=== PATIENT | female | born 1990 | race Caucasian/White ===

== ENCOUNTER 2017-06-10 11:45 | Emergency (ER) | payer MEDICAID, SELFPAY | END 2017-06-10 14:17 | disposition home or self-care (01) | PROVIDERS: Emergency Provider Nurse Practitioner Family; Family Provider Family Medicine; Visit Provider Nurse Practitioner Family | DX: J09.X2 Influenza due to identified novel influenza A virus with other respiratory manifestations (principal) | CPT/HCPCS: 87804; 87880; 99201 ==

== ENCOUNTER → 2019-01-20 09:18 | Outpatient (CLI) | payer OTHER, SELFPAY ==
[2019-01-20 11:13] LABS: Free Thyroxine Index 2.6 ug/dL (5.93-13.13); T4 (Thyroxine) 8.3 ug/dl (4.7-13.3); Thyroid Stimulating Hormone 5.66 uIU/ml (0.358-3.740); Triiodothryronine (T3) Uptake 31 % (31-39)
[2019-01-21 18:03] LABS: Triiodothyronine (T3) Free 3.3 pg/mL (2.0-4.4)
== END ==
PROVIDERS: Visit Provider Nurse Practitioner Obstetrics & Gynecology
DX: R53.82 Chronic fatigue, unspecified (principal)
CPT/HCPCS: 36415; 84436; 84443; 84479; 84481

== ENCOUNTER → 2019-02-23 13:21 | Outpatient (CLI) | payer OTHER, SELFPAY ==
--- NOTE | 2019-02-23 13:28 | US_ITS ---
PROCEDURE: US OB TRANSVAGINAL CLINICAL INDICATION: US T/V- ob dates COMPARISON: No exams were available for comparison FINDINGS: An intrauterine gestational sac is present with a pole with a crown-rump length of 2.32 cm correlating to gestational age of 9 weeks 1 day. heart tones are present with an FHR of 170 bpm. Yolk sac is noted. The amnion and chorion Have not yet fused. Adnexa: 2 cm right corpus luteum cyst IMPRESSION: Live intrauterine gestation at 9 weeks 1 day with estimated due date of 09/27/2019 Estimated due date by Ultrasound is 09/27/2019 Dictated by: Alex Aburto MD 02/23/2019 20:21 Electronically signed by Alex Aburto MD in [place] 02/23/2019 20:21
[2019-02-23 14:33] LABS: Basophils % 0.4 % (0.1-2.0); Eosinophils # 0.2 K/mm3 (0.0-0.4); Eosinophils % 1.8 % (0.1-12.0); Hematocrit 36.3 % (37.0-47.0); Hemoglobin 11.8 g/dL (12.2-16.2); Lymphocytes # 2.2 K/mm3 (0.7-4.5); Mean Corpuscular HGB Conc 32.6 g/dL (31.8-35.4); Mean Corpuscular Hemoglobin 26.6 pg (27.0-31.2); Mean Corpuscular Volume 81.7 fl (81-99); Mean Platelet Volume 7.2 fl (7.4-10.4); Monocytes # 0.5 K/mm3 (0.1-1.0); Monocytes % 4.3 % (1.7-9.3); Neutrophils # 8.2 K/mm3 (1.8-7.8); Neutrophils % 73.5 % (37.0-80.0); Platelet Count 412 K/mm3 (142-424); Red Blood Count 4.45 M/mm3 (4.20-5.40); Red Cell Distribution Width 14.8 % (11.5-17.5); White Blood Count 11.1 K/mm3 (4.8-10.8)
[2019-03-14 09:33] LABS: Hepatitis C Antibody <0.1
[2019-03-14 09:35] LABS: HIV Screen 4th Generation wRfx Non Reactive
[2019-03-14 09:42] LABS: Rapid Plasma Reagin Ab Titer Non Reactive
== END ==
PROVIDERS: PCP Family Medicine; Visit Provider Nurse Practitioner Obstetrics & Gynecology
DX: O26.841 Uterine size-date discrepancy, first trimester (principal)
CPT/HCPCS: 36415; 76817; 85025; 86592; 86703; 86762; 86850; 87340; 87380; G0432

== ENCOUNTER → 2019-02-23 13:46 | Outpatient (CLI) | payer OTHER, SELFPAY | PROVIDERS: Visit Provider Nurse Practitioner Obstetrics & Gynecology | DX: Z34.90 Encounter for supervision of normal pregnancy, unspecified, unspecified trimester (principal) | CPT/HCPCS: 36415; 85025; 86592; 86703; 86762; 86850; 87340; 87380; G0432 ==

== ENCOUNTER → 2019-06-30 08:16 | Outpatient (CLI) | payer OTHER, SELFPAY ==
[2019-06-30 08:50] LABS: Glucose,Fasting 95 mg/dL (60-105)
[2019-06-30 10:21] LABS: Glucose 1 Hour 160 mg/dL (74-106)
== END ==
PROVIDERS: Visit Provider Nurse Practitioner Obstetrics & Gynecology
DX: Z34.90 Encounter for supervision of normal pregnancy, unspecified, unspecified trimester (principal)
CPT/HCPCS: 36415; 82951

== ENCOUNTER → 2019-07-01 08:24 | Outpatient (CLI) | payer OTHER, SELFPAY ==
[2019-07-01 09:58] LABS: Glucose,Fasting 90 mg/dL (60-105)
[2019-07-01 10:15] LABS: Glucose 1 Hour 179 mg/dL (74-106)
[2019-07-01 11:08] LABS: Glucose 2 Hour 116 mg/dL (74-106)
[2019-07-01 12:06] LABS: Glucose 3 Hour 96 mg/dL (74-106)
== END ==
PROVIDERS: Visit Provider Nurse Practitioner Obstetrics & Gynecology
DX: O99.810 Abnormal glucose complicating pregnancy (principal)
CPT/HCPCS: 36415; 82951

== ENCOUNTER → 2019-08-24 15:41 | Outpatient (CLI) | payer OTHER, SELFPAY | PROVIDERS: Visit Provider Nurse Practitioner Obstetrics & Gynecology | DX: Z34.90 Encounter for supervision of normal pregnancy, unspecified, unspecified trimester (principal) | CPT/HCPCS: 86403 ==

== ENCOUNTER 2019-09-19 04:52 | Inpatient (IN) | payer OTHER, SELFPAY ==
[2019-09-19 04:56] VITALS: BMI 46.1
[2019-09-19 05:45] VITALS: BP 138/83; PULSE 88; RESP 18; TEMP 36.6; O2SAT 97; BMI 47.5
[2019-09-19 05:53] LABS: Basophils % 0.3 % (0.1-2.0); Eosinophils # 0.2 K/mm3 (0.0-0.4); Eosinophils % 1.4 % (0.1-12.0); Hematocrit 33.3 % (37.0-47.0); Hemoglobin 11.1 g/dL (12.2-16.2); Lymphocytes # 2.9 K/mm3 (0.7-4.5); Lymphocytes % 25.8 % (10-50); Mean Corpuscular HGB Conc 33.5 g/dL (31.8-35.4); Mean Corpuscular Hemoglobin 27.1 pg (27.0-31.2); Mean Platelet Volume 8.6 fl (7.4-10.4); Monocytes # 0.5 K/mm3 (0.1-1.0); Monocytes % 4.8 % (1.7-9.3); Neutrophils # 7.7 K/mm3 (1.8-7.8); Neutrophils % 67.8 % (37.0-80.0); Platelet Count 322 K/mm3 (142-424); Red Blood Count 4.11 M/mm3 (4.20-5.40); Red Cell Distribution Width 13.9 % (11.5-17.5); White Blood Count 11.3 K/mm3 (4.8-10.8)
[2019-09-19 05:54] LABS: Microscopic, Urine URINE MICROSCOPIC (MICROSCOPIC)
[2019-09-19 06:09] LABS: Appearance,Urine CLEAR (Clear); Bilirubin,Urine Negative (Negative); Blood, Urine TRACE-I (Negative); Color,Urine YELLOW (Yellow); Glucose,Urine (UA) Negative (Negative); Ketones,Urine Negative (Negative); Leukocyte Esterase,Urine 2+ (Negative); Nitrate,Urine Negative (Negative); PH,Urine 6.5 (5.0-8.5); Protein,Urine Negative (Negative); Specific Gravity, Urine 1.025 (1.005-1.030); Urobilinogen,Urine 0.2 EU/dl (0.2)
[2019-09-19 06:21] LABS: Bacteria,Urine 4+ /lpf; Mucus,Urine 1+ /lpf; WBC,Urine 20-50 #/hpf (0-3)
[2019-09-19 06:22] LABS: Amphetamine/Metha Screen,Urine Negative ng/ml (<1000); Barbiturates Screen,Urine Negative ng/ml (<200)
[2019-09-19 06:23] LABS: Benzodiazepines Screen,Urine Negative ng/ml (<200); Cannabinoid Screen,Urine Negative ng/ml (<50)
[2019-09-19 06:24] LABS: Cocaine Screen,Urine Negative ng/ml (<300)
[2019-09-19 06:25] LABS: Methadone Screen,Urine Negative ng/ml (<300); Opiate Screen,Urine Negative ng/ml (<300)
[2019-09-19 06:26] LABS: Phencyclidine Screen,Urine Negative ng/ml (<25)
[2019-09-19 07:12] VITALS: BP 132/74; PULSE 83; RESP 18; TEMP 36.8; O2SAT 100
--- NOTE | 2019-09-19 08:51 | HMH.LABNOT ---
Labor Note - Subjective: Date: 09/19/19 Time: 08:51 regular contraction - Objective: NST:: Reactive Contractions:: every 2-3 minutes Cervical Dilation:: 2-3 Station: -2 Membranes: artificially ruptured - Fetus: Monitoring?: Yes monitoring type:: Internal Comment:: I inserted an IUPC as well as a scalp clip. - Assessment: Labor progressing?: Yes Cephalopelvic disproportion?: No Patient Problems: All Active Problems (Acute) - Plan: Anesthesia for epidural?: No Continue to labor down?: Yes Plan for ?: No Continue to monitor?: Yes Start pushing?: No Continue pushing?: No
--- NOTE | 2019-09-19 11:02 | HMH.LABNOT ---
Labor Note - Subjective: Date: 09/19/19 Time: 11:02 regular contraction - Objective: NST:: Reactive Contractions:: every 2-3 minutes Cervical Dilation:: 5 Effacement:: 90% Station: -1 Membranes: artificially ruptured - Fetus: Monitoring?: Yes monitoring type:: Internal - Assessment: Labor progressing?: Yes Cephalopelvic disproportion?: No Patient Problems: All Active Problems (Acute) - Plan: Anesthesia for epidural?: No Continue to labor down?: Yes Plan for ?: No Continue to monitor?: Yes Start pushing?: No
[2019-09-19 12:04] VITALS: BP 142/74; PULSE 83; RESP 18; TEMP 36.4
--- NOTE | 2019-09-19 13:18 | HMH.DN ---
- Delivery Note Delivery Date:: 09/19/19 Delivery Time:: 13:04 Anesthesia Type: None Was labor medically induced?: Yes Induction method: per pitocin protocol Gestational age (weeks): 39 Infant delivered prior to 39 weeks?: No Gender: Female at 1 minute: 6 at 5 minutes: 9 Delivery Procedure:: She is a 29-year-old 3 para 2 at 39 weeks gestational age. She has had a previous history of rapid labor and as result of that we elected to bring her in at 39 weeks gestational age. She was started on IV oxytocin and had her membranes ruptured. She progressed to full dilation and rapidly delivered a liveborn female child at 1:04 PM. The rest the infant's body then delivered atraumatically. The baby was vigorous. The cord was clamped and cut and the baby was placed on the mother's abdomen for further care. I missed the delivery and the baby was delivered by the nurse. I arrived shortly after delivery and obtained cord blood as well as cord pH. She received IV oxytocin using gentle traction on the cord and countertraction the fundus I was able to easily deliver the placenta intact. He had a normal three-vessel cord. There were no perineal or vaginal lacerations. She has O Rh+ blood, she is rubella immune and was group B streptococcus negative. She plans to breast-feed. Her net programmer analyst is Dr. Mcknight. Estimated blood loss was approximately 400 cc. Placental Delivery Description: Spontaneous
[2019-09-19 13:24] LABS: Cord Blood PH 7.46 (7.35-7.45)
[2019-09-19 15:30] VITALS: BP 135/65; PULSE 88; RESP 18; TEMP 36.5
[2019-09-20 06:37] LABS: Hematocrit 31.8 % (37.0-47.0); Hemoglobin 10.5 g/dL (12.2-16.2)
[2019-09-20 08:00] VITALS: BP 141/65; PULSE 79; RESP 18; TEMP 36.7; O2SAT 98
--- NOTE | 2019-09-20 09:32 | HMH.ACPN2 ---
Internal Medicine - PN: Subj *Date: 09/20/19 *Time: 09:32 Interval history: She is doing very well this morning. She is 1 day post delivery. She feels well. Her lochia is normal. She is breast-feeding. Exam Vital signs and Labs for Last 24 Hours: Temp Pulse Resp BP Pulse Ox 98.1 F 79 18 141/65 H 98 09/20/19 08:00 09/20/19 08:00 09/20/19 08:00 09/20/19 08:00 09/20/19 08:00 Laboratory Results - last 24 hr 09/19/19 13:10: Cord ABG pH 7.46 H 09/20/19 05:55: Hgb 10.5 L, Hct 31.8 L I & O for Last 24 hours: Intake & Output 09/17/19 09/18/19 09/19/19 09/20/19 11:59 11:59 11:59 11:59 Weight 286 lb Microbiology Reports for the Last 24 Hours: Microbiology 09/19/19 05:00 Urine,Clean Catch Urine Culture - Final Multiple organisms, suggests contamination. - Constitutional no acute distress - *Routine HEENT Exam Head: Present: normocephalic Eye: Present: EOMI, PERRL ENT: Present: mucous membranes moist Assessment and Plan - Assessment and plan all Dx Assessment and Plan for all problems:: She continues to do well. We will plan to send her home tomorrow.
--- NOTE | 2019-09-20 14:29 | SW/DCPLANNER ---
RECEIVED REFERRAL FOR THIS PATIENT STATING PATIENT DELIVERED A LIVE BORN FEMALE YESTERDAY, SHE HAS BEEN MOST APPROPRIATE WITH INFANT AND HAS OTHER CHILDREN IN THE HOME..PATIENTS REFERRAL WAS TRIGGERED BY A HISTORY OF DEPRESSION AND ANXIETY AND A HISTORY OF CUTTING ALSO... I MADE CONTACT WITH THE NURSE CARING FOR THIS PATIENT TODAY SINCE IT STATED SHE HAS A HISTORY OF CUTTING AND I HAVE RECOMMENDED AN APPT WITH JONATHAN ZAMARRIPA HERE [facility]...SHE GETS WIC AND HANDS HER STAY IS GOING TO BE SHORT. PATIENT HAS ELECTED TO USE DR SEVILLA THE INFANTS INTERNATIONAL MARKETING MANAGER....
[2019-09-20 16:00] VITALS: BP 144/89; PULSE 71; RESP 18; TEMP 36.7; O2SAT 99
[2019-09-21 08:00] VITALS: BP 156/67; PULSE 88; RESP 17; TEMP 36.7; O2SAT 99
--- NOTE | 2019-09-21 10:23 | P.DS_ITS ---
General - General Admission date:: 09/19/19 Discharge date: 09/21/19 HPI HPI: She is a 29-year-old 3 para 2 who was 39 weeks gestational age. She is had a previous rapid delivery and as result of that we brought her in for induction of labor at term. Hospital Course Hospital Course: She was started on IV oxytocin had her membranes ruptured. She progressed to full dilation and delivered spontaneously a liveborn female child at 1:06 PM in the afternoon of September 19, 2019. The baby was a liveborn female child weighing 7 pounds 8 ounces and was 20-1/2 inches long. She had Apgars of 6 at 1 minute and 9 at 5 minutes. She has done well and has remained afebrile throughout her hospitalization. She is eating and drinking and ambulating. She is breast- feeding. She has O Rh+ blood, she is rubella immune and was group B streptococcus negative. She is discharged home to follow-up with me in 6 weeks time. She will continue with her vitamins and iron. Her blood pressure was slightly elevated this morning but she denies any symptoms. She will continue to monitor her blood pressure at home. She was given the warning signs of PIH. Her condition on discharge is stable and improved. Rhogam Administration: Not Indicated Objective Vital signs: Temp Pulse Resp BP Pulse Ox 98.1 F 88 17 156/67 H 99 09/21/19 08:00 09/21/19 08:00 09/21/19 08:00 09/21/19 08:00 09/21/19 08:00 no acute distress - *Routine HEENT Exam Head: Present: normocephalic Eye: Present: EOMI, PERRL ENT: Present: mucous membranes moist DS: Diagnosis - Discharge Diagnosis (1) Normal delivery at term Status: Acute Discharge Plan - Patient Discharge Instructions ACTIVITY: No heavy lifting DIET: continue same diet Additional Instructions: FOLLOW UP WITH DR FORTUNE ON Wednesday10/03/2019 AT 9:30AM CALL AND SCHEDULE APPOINTMENT WITH JONATHAN STEVENSON APRN TO RESUME VISITS. No heavy lifting, no strenuous activity, nothing in the vagina for 6 weeks. Patient Instructions: Depression, Hemorrhage, DI for Labor and Delivery, Vaginal , DI for Pre-eclampsia, [facility] Post Discharge Instructions, Preventing the Spread of Coronavirus Discharge Instructions - Follow up Plan Follow up with: Kwasi Fortune MD [Staff Physician] - Disposition: Home, Self-Jail Medications: Home Medications Medication Instructions Recorded Confirmed Type ferrous sulfate 325 mg (65 mg 325 mg PO DAILY 02/16/19 09/19/19 History iron) tablet prenat.vits,andra,ibk-fwyg-owfjy 1 tab PO DAILY 02/16/19 09/19/19 History Levothyroxine Sodium 25 mcg PO DAILY 09/19/19 09/19/19 History [Levothyroxine 25mcg (0.025mg) Tab] Prescriptions/Medication Reconciliation: Continued prenat.vits,andra,jex-rvge-fcxvn 1 tab PO DAILY ferrous sulfate 325 mg (65 mg iron) tablet 325 mg PO DAILY Levothyroxine Sodium [Levothyroxine 25mcg (0.025mg) Tab] 25 mcg PO DAILY - Problem Reconciliation Problems Reviewed?: Yes
== END 2019-09-21 11:20 | disposition home or self-care (01) | DRG 807 ==
PROVIDERS: Admitting Provider Nurse Practitioner Obstetrics & Gynecology; PCP Physician Assistant; Visit Provider Nurse Practitioner Obstetrics & Gynecology
DX: O80 Encounter for full-term uncomplicated delivery (principal); Z37.0 Single live birth; Z3A.39 39 weeks gestation of pregnancy
CPT/HCPCS: 59409; 36415; 59025; 80305; 81001; 82800; 85014; 85018; 85025; 86850; 87086; C1758

== ENCOUNTER → 2020-08-15 14:13 | Outpatient (CLI) | payer OTHER, SELFPAY | PROVIDERS: PCP Physician Assistant; Visit Provider Nurse Practitioner Family | DX: Z02.1 Encounter for pre-employment examination (principal) ==

== ENCOUNTER → 2021-03-20 14:38 | Outpatient (CLI) | payer OTHER, SELFPAY | PROVIDERS: PCP Physician Assistant; Visit Provider Nurse Practitioner | DX: Z20.822 Contact with and (suspected) exposure to COVID-19 (principal); U07.1 COVID-19 | CPT/HCPCS: C9803; U0003; U0005 ==

== ENCOUNTER → 2021-03-26 09:20 | Outpatient (CLI) | payer OTHER, SELFPAY | PROVIDERS: PCP Physician Assistant; Visit Provider Nurse Practitioner | DX: Z20.822 Contact with and (suspected) exposure to COVID-19 (principal); U07.1 COVID-19 | CPT/HCPCS: C9803; U0003; U0005 ==

== ENCOUNTER → 2021-03-28 15:08 | Outpatient (CLI) | payer OTHER, SELFPAY | PROVIDERS: PCP Physician Assistant; Visit Provider Nurse Practitioner | DX: Z20.822 Contact with and (suspected) exposure to COVID-19 (principal); U07.1 COVID-19 | CPT/HCPCS: C9803; U0003; U0005 ==

== ENCOUNTER 2021-03-31 16:10 | Emergency (ER) | payer OTHER, SELFPAY ==
[2021-03-31 16:10] VITALS: BP 163/78; PULSE 99; RESP 16; TEMP 36.9; O2SAT 98; BMI 47.4
[2021-03-31 17:04] LABS: UTC Strep Screen (Rapid) Negative (Negative)
--- NOTE | 2021-03-31 17:21 | HMH.EDUTC ---
[facility] [place] Clinical Impression: Pharyngitis Qualifiers: Pharyngitis/tonsillitis etiology: unspecified etiology Qualified Code(s): J02.9 - Acute pharyngitis, unspecified Disposition: Home, Self-Care Condition on Discharge: Good Instructions: Strep Throat, DI for Strep Throat Additional Instructions: Drink plenty of fluids. Take tylenol or ibuprofen for pain or fever. Take the medications as directed. Follow up with your regular doctor. GO TO THE ER FOR ANY WORSENING SYMPTOMS Throw your tooth brush away and get a new one. Prescriptions: Brompheniramine/Pseudoephed/Dm [Bromfed Dm Cough Syrup] 5 ml PO Q6HP PRN #240 ml PRN Reason: Cough Transmission Status: Received by [id number] Amoxicillin [Amoxicillin 500mg Tab] 500 mg PO TID 10 Days #30 tab Transmission Status: Received by [id number] predniSONE [Deltasone 10mg tablet] 10 mg PO BID 3 Days #6 tab Transmission Status: Received by [id number] Referrals: Dena Dunaway PA [Primary Care Provider] - Forms: Work/School Release Time of Disposition: 17:26 Medical Decision Making - Medical Records Medical records reviewed: No: I reviewed the patient's medical records. - Edgar Inquiry Pt receiving controlled substance: No Vital Signs: 03/31/21 16:10 03/31/21 17:43 Temperature 98.4 F 98.4 F Temperature Source Oral Oral Pulse Rate 87 Pulse Rate [Right] 99 H Respiratory Rate 16 16 Blood Pressure 160/72 H Blood Pressure [Right Arm] 163/78 H Blood Pressure Mean [Right Arm] 106 Blood Pressure Source Automatic Cuff Blood Pressure Source [Right Arm] Automatic Cuff Blood Pressure Position Sitting Blood Pressure Position [Right Arm] Sitting 02 Sat by Pulse Oximetry 98 Oxygen Delivery Method Room Air Room Air - Lab Data Lab results reviewed: Yes: I reviewed the patient's lab results. Lab Results 03/31/21 17:00: Strep Scn Rapid Clinic Negative Orders (Tests/Meds): ORDERS Category Date Time Status Strep Screen Confirmation Routine Micro 03/31/21 17:00 [place] [facility] [place] - General Stated complaint: Strep Throat Time Seen by Provider: 03/31/21 17:22 Mode of Arrival: Ambulatory Source of Information: Patient Limitations: No Limitations Description of Symptoms (Recalled from Triage Doc. by RN): pt c/o sore throat that started yesterday HEENT Symptoms (Recalled from RN notes): Yes (sore throat) Resp Symptoms (Recalled from RN notes): No Skin Symptoms (Recalled from RN notes): No MS Symptoms (Recalled from RN notes): No Functional Status (Recalled from RN notes): na - History of Present Illness Provider Complaint: She states that she has had a sore throat and felt bad for the past 2 days. She had covid around 2 weeks ago, but she never really got very sick from that and she has been better from it completely for the past 10 days at least. Her work wants her to be tested for covid-19 too while she is here since she is sick. - Related Data Home Medications Medication Instructions Recorded Confirmed Levothyroxine Sodium 25 mcg PO DAILY 09/19/19 11/02/19 [Levothyroxine 25mcg (0.025mg) Tab] sertraline 100 mg tablet 100 mg PO tab 11/02/19 11/02/19 Previous Rx's Medication Instructions Recorded norethindrone (contraceptive) 0.35 0.35 mg PO DAILY #84 tab 11/02/19 mg tablet Amoxicillin [Amoxicillin 500mg Tab] 500 mg PO TID 10 Days #30 tab 03/31/21 Brompheniramine/Pseudoephed/Dm 5 ml PO Q6HP PRN #240 ml 03/31/21 [Bromfed Dm Cough Syrup] predniSONE [Deltasone 10mg tablet] 10 mg PO BID 3 Days #6 tab 03/31/21 Allergies Allergy/AdvReac Type Severity Reaction Status Date / Time No Known Allergies Allergy Verified 11/02/19 10:46 - Worker's Comp Is this a Worker's Comp case?: No [place] History - Hepatitis A Screen Drug use history?: No High risk sexual behaviors?: No History of sexually transmitted infection?: No Currently employed?: No Childcare worker?: No
[2021-03-31 17:43] VITALS: BP 160/72; PULSE 87; RESP 16; TEMP 36.9; O2SAT 98
== END 2021-03-31 17:44 | disposition home or self-care (01) ==
PROVIDERS: Emergency Provider Nurse Practitioner Family; PCP Physician Assistant
DX: J02.9 Acute pharyngitis, unspecified (principal); Z20.822 Contact with and (suspected) exposure to COVID-19
CPT/HCPCS: 87880; 99202; G0463

== ENCOUNTER → 2021-04-02 11:42 | Outpatient (CLI) | payer OTHER, SELFPAY | PROVIDERS: PCP Physician Assistant; Visit Provider Nurse Practitioner | DX: Z20.822 Contact with and (suspected) exposure to COVID-19 (principal) | CPT/HCPCS: C9803; U0003; U0005 ==

== ENCOUNTER → 2021-08-21 07:03 | Outpatient (CLI) | payer OTHER, SELFPAY ==
[2021-08-21 07:23] LABS: Basophils # 0.1 K/mm3 (0-0.2); Basophils % 1.3 % (0.1-2.0); Eosinophils # 0.4 K/mm3 (0.0-0.4); Eosinophils % 4.4 % (0.1-12.0); Hematocrit 42.3 % (37.0-47.0); Hemoglobin 13.2 g/dL (12.2-16.2); Lymphocytes # 2.6 K/mm3 (0.7-4.5); Lymphocytes % 30.2 % (10-50); Mean Corpuscular HGB Conc 31.2 g/dL (31.8-35.4); Mean Corpuscular Hemoglobin 26.9 pg (27.0-31.2); Mean Corpuscular Volume 85.9 fl (81-99); Mean Platelet Volume 8.2 fl (7.4-10.4); Monocytes # 0.4 K/mm3 (0.1-1.0); Monocytes % 4.4 % (1.7-9.3); Neutrophils # 5.1 K/mm3 (1.8-7.8); Neutrophils % 59.8 % (37.0-80.0); Platelet Count 391 K/mm3 (142-424); Red Blood Count 4.92 M/mm3 (4.20-5.40); Red Cell Distribution Width 14.1 % (11.5-17.5); White Blood Count 8.6 K/mm3 (4.8-10.8)
[2021-08-21 07:56] LABS: Alanine Aminotransferase 27 U/L (12-78); Albumin Level 4.1 g/dl (3.5-5.0); Albumin/Globulin Ratio 1.4 (1.1-1.8); Alkaline Phosphatase 77 U/L (38-126); Anion Gap 11.1 mEq/L (5-15); Aspartate Amino Transferase 21 U/L (14-36); Bilirubin,Total 0.6 mg/dl (0.2-1.3); Blood Urea Nitrogen 10 mg/dl (7-17); Calcium 8.8 mg/dl (8.4-10.2); Carbon Dioxide 30 mmol/L (22.0-30.0); Chloride 103 mmol/L (98-107); Chol/HDL Ratio 3.4 (1-3.5); Cholesterol 178 mg/dl (140-200); Estimated Glomerular Filt Rate 118 ml/min (>60); GFR (African American) 143 ML/MIN (>60); Glucose 110 mg/dl (74-100); HDL Cholesterol 53 mg/dl (40-60); Potassium 4.1 mmoL/L (3.5-5.1); Sodium 140 mmol/L (136-145); Total Protein,Serum 7.1 g/dl (6.3-8.2); Triglycerides 93 mg/dl (30-150); VLDL Cholesterol 19 mg/dL (0-40)
[2021-08-21 08:07] LABS: Direct LDL Cholesterol 90.82 mg/dL (100-129)
[2021-08-21 08:14] LABS: Free Thyroxine Index 2.6 ug/dL (5.93-13.13); T4 (Thyroxine) 7.5 ug/dl (5.53-11.0); Triiodothryronine (T3) Uptake 35 % (23.5-40.5)
== END ==
PROVIDERS: Visit Provider Nurse Practitioner Obstetrics & Gynecology
DX: Z01.419 Encounter for gynecological examination (general) (routine) without abnormal findings (principal); R53.82 Chronic fatigue, unspecified; R63.5 Abnormal weight gain
CPT/HCPCS: 36415; 80053; 80061; 84436; 84443; 84479; 85025

== ENCOUNTER 2022-03-24 16:49 | Emergency (ER) | payer OTHER, SELFPAY ==
[2022-03-24 17:15] VITALS: BP 121/76; PULSE 101; RESP 18; TEMP 36.8; O2SAT 98; BMI 50.0
[2022-03-24 17:34] LABS: UTC Strep Screen (Rapid) Negative (Negative)
[2022-03-24 18:09] VITALS: BP 121/76; PULSE 101; RESP 18; TEMP 36.8; O2SAT 98
--- NOTE | 2022-03-24 18:17 | EXP.UTC ---
Discharge Plan Disposition Patient Disposition: Home, Self-Care Condition: Good Prescriptions Prescriptions: New cyclobenzaprine 10 mg tablet 10 mg PO TID PRN (Reason: muscle spasm) Qty: 30 0RF Referrals Follow up/Referrals: Dena Dunaway PA [Primary Care Provider] - See instructions Clinical Impressions Clinical Impression: Acute strain of neck muscle Qualifiers: Encounter type: initial encounter Qualified Code(s): S16.1XXA - Strain of muscle, fascia and tendon at neck level, initial encounter Instructions Patient Instructions: DI for Muscle Strain Discharge ED Provider: Teresa Gordon [facility] General Stated complaint: AO 03/19 HURT BACK @HOME Mode of Arrival: Ambulatory Source of Information: Patient Limitations: No Limitations Time Seen by Provider: 03/24/22 18:17 Description of Symptoms (Recalled from Triage Doc. by RN): PATIENT C/O NECK SORENESS AND STIFFNESS X 4 DAYS HEENT Symptoms (Recalled from RN notes): No Resp Symptoms (Recalled from RN notes): No Skin Symptoms (Recalled from RN notes): No MS Symptoms (Recalled from RN notes): Yes Functional Status (Recalled from RN notes): WNL History of Present Illness Provider Complaint: Pt relates that 4 days ago she went to lift a child to its feet and felt a muscle strain in her neck. She states she has used icy hot, taken Tylenol/Ibuprofen, and done warm compresses with no relief. She states that she woke up this morning with pain while swallowing. Related Data Previous Rx's Medication Instructions Recorded cyclobenzaprine 10 mg tablet 10 mg PO TID PRN muscle spasm #30 03/24/22 tabs Allergies Allergy/AdvReac Type Severity Reaction Status Date / Time No Known Allergies Allergy Verified 08/20/21 15:56 Worker's Comp Is this a Worker's Comp case?: No PFSH [facility] Medical History (Updated 03/24/22 @ 18:27 by Teresa Gordon HANDKERCHIEF MAKER) Anxiety Depression Social History (Updated 03/24/22 @ 17:25 by Edna Ortiz RN) Smoking Status: Current every day smoker alcohol intake: current substance use type: denies use and marijuana current occupational status: unemployed Travel in the last 8 weeks: None number of children: 2 ROS Obtained: Yes All systems reviewed & no additional complaints except as documented Constitutional Constitutional: Reports system reviewed and no additional complaints, except as documented Eyes Eyes: Reports system reviewed and no additional complaints, except as documented ENT Ears, Nose, Mouth, and Throat: Reports as per HPI, Reports neck pain and Reports sore throat Cardiovascular Cardiovascular: Reports system reviewed and no additional complaints, except as documented Respiratory Respiratory: Reports system reviewed and no additional complaints, except as documented Gastrointestinal Gastrointestingal: Reports system reviewed and no additional complaints, except as documented Genitourinary Female Genitourinary: Reports system reviewed and no additional complaints, except as documented Musculoskeletal Musculoskeletal: Reports as per HPI, Reports muscle cramps, Reports myalgias and Reports neck pain Integumentary/Breasts Skin/Breast: Reports system reviewed and no additional complaints, except as documented Neurologic Neurologic: Reports system reviewed and no additional complaints, except as documented Endocrine Endocrine: Reports system reviewed and no additional complaints, except as documented Hematologic/Lymphatic Henatologic/Lymphatic: Reports system reviewed and no additional complaints, except as documented Allergic/Immunologic Allergic/Immunologic: Reports system reviewed and no additional complaints, except as documented Physical Exam General General appearance: alert and in no apparent distress Head Head exam: atraumatic and normocephalic Eye Eye exam: Present normal appearance ENT ENT exam: Present normal exam Expanded Neck Exam Neck exam focused ED: Present paraspinal tenderness a
== END 2022-03-24 18:40 | disposition home or self-care (01) ==
PROVIDERS: Emergency Provider Nurse Practitioner Family; PCP Physician Assistant
DX: S16.1XXA Strain of muscle, fascia and tendon at neck level, initial encounter (principal)
CPT/HCPCS: 87880; 96372; 99212; G0463

== ENCOUNTER → 2022-09-14 17:09 | Outpatient (CLI) | payer OTHER, SELFPAY | PROVIDERS: PCP Nurse Practitioner Family; Visit Provider Nurse Practitioner Family | DX: J02.9 Acute pharyngitis, unspecified (principal) | CPT/HCPCS: 87070 ==

== ENCOUNTER → 2022-10-31 09:26 | Outpatient (CLI) | payer OTHER, SELFPAY ==
--- NOTE | 2022-10-31 09:41 | XR_ITS ---
FINAL REPORT CLINICAL HISTORY: LT ANT KNEE PAIN FINDINGS: Three views of the left knee reveal no evidence of fracture or dislocation. The bony alignment is normal. There are mild degenerative changes. There is no evidence of joint effusion. No localized soft tissue abnormality is seen. IMPRESSION: No acute abnormality identified. Reviewed, Interpreted and Dictated by Jonnathan Ambrocio III, MD Transcribed by Asya Tovar Authenticated and [facility]
[2022-10-31 09:59] LABS: Basophils # 0.1 K/mm3 (0-0.2); Basophils % 0.6 % (0.1-2.0); Eosinophils # 0.4 K/mm3 (0.0-0.4); Eosinophils % 3.8 % (0.1-12.0); Hematocrit 41.1 % (37.0-47.0); Hemoglobin 13.1 g/dL (12.2-16.2); Lymphocytes # 2.5 K/mm3 (0.7-4.5); Lymphocytes % 26.9 % (10-50); Mean Corpuscular HGB Conc 31.9 g/dL (31.8-35.4); Mean Corpuscular Volume 84.5 fl (81-99); Mean Platelet Volume 7.8 fl (7.4-10.4); Monocytes # 0.4 K/mm3 (0.1-1.0); Monocytes % 4.7 % (1.7-9.3); Neutrophils # 5.9 K/mm3 (1.8-7.8); Platelet Count 366 K/mm3 (142-424); Red Blood Count 4.87 M/mm3 (4.20-5.40); Red Cell Distribution Width 14.4 % (11.5-17.5); White Blood Count 9.3 K/mm3 (4.8-10.8)
[2022-10-31 10:43] LABS: Hemoglobin A1C 5.7 % (4.0-6.0)
[2022-10-31 10:45] LABS: Alanine Aminotransferase 40 U/L (12-78); Albumin Level 3.9 g/dl (3.5-5.0); Albumin/Globulin Ratio 1.2 (1.1-1.8); Alkaline Phosphatase 83 U/L (38-126); Anion Gap 12.9 mEq/L (5-15); Aspartate Amino Transferase 34 U/L (14-36); Bilirubin,Total 0.6 mg/dl (0.2-1.3); Blood Urea Nitrogen 8 mg/dl (7-17); Calcium 8.6 mg/dl (8.4-10.2); Carbon Dioxide 31 mmol/L (22.0-30.0); Chloride 99 mmol/L (98-107); Chol/HDL Ratio 2.8 (1-3.5); Cholesterol 168 mg/dl (140-200); Estimated Glomerular Filt Rate 145 ml/min (>60); GFR (African American) 175 ML/MIN (>60); Globulin 3.2 g/dL (1.3-3.2); Glucose 98 mg/dl (74-100); HDL Cholesterol 61 mg/dl (40-60); Potassium 3.9 mmoL/L (3.5-5.1); Sodium 139 mmol/L (136-145); Total Protein,Serum 7.1 g/dl (6.3-8.2); Triglycerides 86 mg/dl (30-150); VLDL Cholesterol 17 mg/dL (0-40)
[2022-10-31 10:57] LABS: Direct LDL Cholesterol 101.93 mg/dL (100-129)
[2022-10-31 11:16] LABS: Thyroid Stimulating Hormone 2.89 uIU/mL (0.465-4.68)
== END ==
PROVIDERS: PCP Nurse Practitioner Family; Visit Provider Nurse Practitioner Family
DX: Z00.00 Encounter for general adult medical examination without abnormal findings (principal); R53.83 Other fatigue; R73.9 Hyperglycemia, unspecified; M25.562 Pain in left knee
CPT/HCPCS: 36415; 73562; 80053; 80061; 83036; 84443; 85025

== ENCOUNTER 2022-12-06 10:02 | Emergency (ER) | payer OTHER, SELFPAY ==
[2022-12-06 10:15] VITALS: BP 141/88; PULSE 106; RESP 19; TEMP 37.7; O2SAT 98; BMI 47.2
[2022-12-06 10:23] LABS: UTC Strep Screen (Rapid) Positive (Negative)
[2022-12-06 10:24] VITALS: BP 141/88; PULSE 106; RESP 19; TEMP 37.7; O2SAT 98
--- NOTE | 2022-12-06 10:24 | EXP.UTC ---
Discharge Plan Disposition Patient Disposition: Home, Self-Care Condition: Good Prescriptions Prescriptions: New amoxicillin 875 mg tablet 875 mg PO BID Qty: 20 0RF Referrals Follow up/Referrals: Rachel Miller APRN [Primary Care Provider] - See instructions Activity Restrictions/Add. Instructions Additional Instructions/Restrictions: *Monitor Temp, Over the counter Motrin or Tylenol as directed/as needed Tylenol every 4 hours and Motrin every 6 hours (as long as your family doctor has told you that you can take it) for fever or pain. and straight to ER if unable to lower temp less than 101.0 after medication given *Warm salt water gargles may help to soothe the throat *Throat Lozenges? *Warm fluids like tea with honey may help to soothe the throat? *Sleep elevated *Humidifier/Vaporizer *If you did not take Penicillin shot or was unable to, start taking antibiotic immediately and make sure that you take it for the FULL length of time although you should start to feel better in 24-48 hours *change toothbrush and toothpaste 24-48 hours after starting to take antibiotics so you do not reinfect yourself Monitor Temp. Tylenol and/or Ibuprofen as needed. ER if fever is no less than 101 despite alternating Tylenol and Ibuprofen * Encourage fluids, water, Gatorade, powerade, pedialyte if /toddler/or child *Cold fluids, popsicles and ice cream may feel good on his throat Follow up IMMEDIATELY for new or worsening symptoms or no Noticeable improvement over the next 48-72 hours. 911 for difficulty breathing or swallowing Clinical Impressions Clinical Impression: Strep throat Stand Alone Forms Stand Alone Forms: Work/School Release Instructions Patient Instructions: Middle Ear Infection, DI for Strep Throat, Amoxicillin Discharge ED Provider: Jolanta Feuntes [facility] [place] HPI General Stated complaint: headache,sore throat,fever Mode of Arrival: Ambulatory Source of Information: Patient Limitations: No Limitations Time Seen by Provider: 12/06/22 10:24 Description of Symptoms (Recalled from Triage Doc. by RN): PATIENT C/O SORE THROAT, HEADACHE, BODY ACHES, AND CHILLS SINCE WEDNESDAY HEENT Symptoms (Recalled from RN notes): Yes Resp Symptoms (Recalled from RN notes): No Skin Symptoms (Recalled from RN notes): No MS Symptoms (Recalled from RN notes): No Functional Status (Recalled from RN notes): WNL History of Present Illness Provider Complaint: Patient states that she started feeling bad several days ago and has continued to get worse States that she has been having fever, headache, chills, sorethroat and pain in her right ear States that this morning she woke up with fever and took Tylenol to help to break it and then came in to get checked Related Data Previous Rx's Medication Instructions Recorded amoxicillin 875 mg tablet 875 mg PO BID #20 tabs 12/06/22 Allergies Allergy/AdvReac Type Severity Reaction Status Date / Time No Known Allergies Allergy Verified 09/14/22 10:45 Worker's Comp Is this a Worker's Comp case?: No [facility] Disclaimer: The information contained in this section may have been updated after the patient was seen, as this information can be updated by other users. Medical History (Updated 12/06/22 @ 10:29 by Jolanta Fuentes APRN) 6 weeks follow-up Acute strain of neck muscle Anxiety Depression Pharyngitis Social History Smoking Status: Current every day smoker alcohol intake: current substance use type: denies use and marijuana current occupational status: unemployed Travel in the last 8 weeks: None number of children: 2 ROS Obtained: Yes All systems reviewed & no additional complaints except as documented and Yes Systems reviewed as appropriate & no additional complaints except as documented Constitutional Constitutional: Reports system reviewed and no additional complaints
== END 2022-12-06 10:38 | disposition home or self-care (01) ==
PROVIDERS: Emergency Provider Nurse Practitioner; PCP Nurse Practitioner Family
DX: J02.0 Streptococcal pharyngitis (principal); R50.9 Fever, unspecified; R51.9 Headache, unspecified; H66.91 Otitis media, unspecified, right ear
CPT/HCPCS: 87880; 99212; 99214; G0463

== ENCOUNTER → 2023-01-15 11:54 | Outpatient (CLI) | payer OTHER, SELFPAY ==
--- NOTE | 2023-01-15 12:02 | XR_ITS ---
FINAL REPORT CLINICAL HISTORY: acute lt ankle pain rolled ankle last night lateral ankle pain COMPARISON: None FINDINGS: LEFT ANKLE: Three views of the left ankle were obtained. There is no acute fracture or dislocation. The joint spaces and mortise are intact. There is no soft tissue abnormality. IMPRESSION: No acute bony abnormality. Reviewed, Interpreted and Dictated by Jonnathan Ambrocio III, MD Transcribed by Tabitha Schwartz Authenticated and [facility]
== END ==
PROVIDERS: PCP Pediatrics; Visit Provider Physician Assistant
DX: M25.572 Pain in left ankle and joints of left foot (principal)
CPT/HCPCS: 73610

== ENCOUNTER 2023-01-19 12:48 | Outpatient (RCR) | payer OTHER, SELFPAY | END 2023-01-19 14:00 | disposition home or self-care (01) | LOC: PT 12:48 | PROVIDERS: PCP Pediatrics; Visit Provider Physician Assistant | DX: M25.572 Pain in left ankle and joints of left foot (principal) | CPT/HCPCS: 97163 ==

== ENCOUNTER 2023-07-23 09:04 | Emergency (ER) | payer OTHER, SELFPAY ==
--- NOTE | 2023-07-23 09:25 | EXP.UTC ---
Discharge Plan Disposition Patient Disposition: Home, Self-Care Condition: Good Prescriptions Prescriptions: New oseltamivir [Tamiflu] 75 mg capsule 75 mg PO BID Qty: 10 0RF promethazine-DM 6.25-15 mg/5 mL syrup 5 ml PO Q6H PRN (Reason: Cough) Qty: 180 0RF Referrals Follow up/Referrals: Reinaldo Do MD [Primary Care Provider] - See instructions Activity Restrictions/Add. Instructions Additional Instructions/Restrictions: Rest, fluids, tylenol/motrin as needed Return if not improving or symptoms worsen Clinical Impressions Clinical Impression: Influenza B Discharge ED Provider: Adina Lerma [facility] [place] HPI General Stated complaint: fever 102 chills ba cough flu exposure Time Seen by Provider: 07/23/23 10:07 History of Present Illness Provider Complaint: Fever, body aches, headache, chills, cough since last night. Onset (ago): day(s) (1) Location: head and chest Radiation: non-radiation Severity: moderate Relieving factors: none Exacerbating factors: none Associated symptoms: cough, fever/chills, headaches and malaise Treatments prior to arrival: none Related Data Previous Rx's Medication Instructions Recorded oseltamivir 75 mg capsule (Tamiflu) 75 mg PO BID #10 caps 07/23/23 promethazine-DM 6.25 mg-15 mg/5 mL 5 ml PO Q6H PRN Cough #180 mL 07/23/23 oral syrup Allergies Allergy/AdvReac Type Severity Reaction Status Date / Time No Known Allergies Allergy Verified 07/23/23 09:51 [facility] Disclaimer: The information contained in this section may have been updated after the patient was seen, as this information can be updated by other users. Medical History (Updated 07/23/23 @ 10:12 by ADELA Ray) 6 weeks follow-up Acute strain of neck muscle Anxiety Depression Pharyngitis Social History Smoking Status: Current every day smoker alcohol intake: current substance use type: denies use and marijuana current occupational status: unemployed Travel in the last 8 weeks: None number of children: 2 ROS Obtained: Yes All systems reviewed & no additional complaints except as documented and Yes Systems reviewed as appropriate & no additional complaints except as documented Constitutional Constitutional: Reports system reviewed and no additional complaints, except as documented, Reports as per HPI, Reports body ache, Reports chills, Reports fever(s) and Reports headache(s) ENT Ears, Nose, Mouth, and Throat: Reports system reviewed and no additional complaints, except as documented, Reports as per HPI, Reports otalgia, Reports headache(s) and Reports sore throat Cardiovascular Cardiovascular: Reports system reviewed and no additional complaints, except as documented and Reports as per HPI Respiratory Respiratory: Reports system reviewed and no additional complaints, except as documented, Reports as per HPI and Reports cough Gastrointestinal Gastrointestingal: Reports system reviewed and no additional complaints, except as documented and as per HPI Integumentary/Breasts Skin/Breast: Reports system reviewed and no additional complaints, except as documented and Reports as per HPI Neurologic Neurologic: Reports system reviewed and no additional complaints, except as documented, Reports as per HPI and Reports headache(s) Physical Exam General General appearance: alert and in no apparent distress Head Head exam: atraumatic, normocephalic and normal inspection Eye Eye exam: Present normal appearance, PERRL and EOMI ENT ENT exam: Present normal exam, normal oropharynx, mucous membranes moist, TM's normal bilaterally and normal external ear exam Neck Neck exam: Present normal inspection, full ROM and trachea midline; Absent meningismus or lymphadenopathy Chest Chest inspection: Present normal inspection and symmetric chest wall rise; Absent tenderness Respiratory Respiratory exam: Present normal lung sounds bilaterally; Absent respiratory distress Cardiovascular Cardiovascular exam: Present regular rate, normal rhythm and tachycardia; Absent JVD Abdominal Exam Abdominal exam: Present soft and normal bowel sounds; Absent distention, tenderness or guarding Extremities Exam Extremities exam: Present normal inspection, full ROM and normal capillary refill; Absent calf tenderness Back Exam Back exam: Present normal inspection; Absent tenderness Neurological Exam Neurological exam: Present alert and oriented X3 Psychiatric Psychiatric exam: Present normal affect and normal mood Skin Skin exam: Present warm, dry, intact and normal color Lymphatic Lymphatic Findings: no adenopathy Medical Decision Making Edgar Inquiry Pt receiving controlled substance: No Lab Data Lab results reviewed: Yes I reviewed the patient's lab results.
[2023-07-23 09:40] VITALS: BP 154/90; PULSE 119; RESP 20; TEMP 38; O2SAT 96; BMI 50.9
[2023-07-23 10:02] LABS: UTC Influenza A Antigen Negative (Negative); UTC Influenza B Antigen Positive (Negative)
[2023-07-23 10:22] VITALS: BP 154/90; PULSE 119; RESP 20; TEMP 38; O2SAT 95
== END 2023-07-23 10:22 | disposition home or self-care (01) ==
PROVIDERS: Emergency Provider Physician Assistant; PCP Internal Medicine Adolescent Medicine
DX: J10.1 Influenza due to other identified influenza virus with other respiratory manifestations (principal); R50.9 Fever, unspecified; R05.9 Cough, unspecified; R51.9 Headache, unspecified; R53.81 Other malaise; M79.18 Myalgia, other site; F17.210 Nicotine dependence, cigarettes, uncomplicated
CPT/HCPCS: 87804; 99212; 99214; G0463